=== PATIENT | male | born 1980 | race Caucasian/White ===

== ENCOUNTER 2024-04-30 04:54 | Emergency (ER) | payer BC, SELFPAY ==
[2024-04-30 04:55] VITALS: BP 143/82; PULSE 85; RESP 20; TEMP 36.6; O2SAT 98; BMI 35.2
--- NOTE | 2024-04-30 05:06 | EKG12_ITS ---
Test Reason : CP Blood Pressure : / mmHG Vent. Rate : 074 BPM Atrial Rate : 074 BPM P-R Int : 166 ms QRS Dur : 098 ms QT Int : 378 ms P-R-T Axes : 023 021 013 degrees QTc Int : 419 ms Normal sinus rhythm Normal ECG Confirmed by EMMA DRUMMOND MD ([id number]), supervising editor news reel PEGGY ALMONTE ([id number]) on 05/02/2024 9:42:35 AM Referred By: RU Confirmed By:EMMA DRUMMOND MD
--- NOTE | 2024-04-30 05:06 | RAD_ITS ---
EXAM: XR CHEST, 1 VIEW CLINICAL INDICATION: chest pain TECHNIQUE: Frontal view of the chest. COMPARISON: No relevant prior studies available. FINDINGS: LUNGS AND PLEURAL SPACES: Low lung volumes limit the exam. No consolidations. No pneumothorax. No effusion. HEART: Unremarkable. Cardiac silhouette not enlarged. MEDIASTINUM: Central airways and mediastinal contour are unremarkable. BONES/JOINTS: Unremarkable. No acute fracture. SOFT TISSUES: Unremarkable. RAD/Chest 1 View (Portable) IMPRESSION: Low lung volumes limit the exam. No acute cardiopulmonary abnormality. Electronically Signed: Randy Badillo MD at 6:28 EDT ,
--- NOTE | 2024-04-30 05:06 | EDS_ITS ---
HPI History of Present Illness Chief Complaint: Chest Pain Detail of Chief Complaint: Chest pain Informant: patient and spouse/S.O. Narrative Narrative: Patient presents to the emergency department with complaint of chest pain that started around 4:15 AM. Patient was sleeping when he woke up with discomfort in his chest. He describes a tightness or pressure in the center of his chest. No radiation of the pain. At first it felt worse with lying flat. It is not pleuritic. He denies nausea or vomiting. He denies diaphoresis or lightheadedness. He has not had discomfort like this before. He thought maybe he pulled a muscle because his daughter stepped on his back last night. Patient also had some heartburn last night. He is a diabetic type II and history of cholesterol. No family history of heart disease. [facility] Medical History (Updated 04/30/24 @ 07:[address] Denilson Gutirérez DO) Gout High cholesterol Diabetes Home Medications ?Medication ?Instructions ?Recorded ?Last Taken ?Type metformin 500 mg tablet,extended mg PO 04/30/24 Unknown History release 24 hr rosuvastatin 5 mg tablet 5 mg PO QHS 04/30/24 Unknown History Allergy/AdvReac Type Severity Reaction Status Date / Time No Known Allergies Allergy Unverified 11/30/21 08:17 Social History Smoking Status: Never smoker ROS ROS ED Review of Systems ROS Unobtainable: other Constitutional Constitutional ED: Reports lethargy; Denies chills, fever(s), sweats or weight loss Eyes Eyes: Denies blurry vision, change in vision or diplopia ENT ENT ED: Denies rhinorrhea or sore throat Cardiovascular Cardiovascular: Reports chest pain; Denies orthopnea or racing heartbeat Respiratory/Chest Respiratory/Chest: Denies cough, dyspnea, dyspnea on exertion, orthopnea or sputum Gastrointestinal Gastrointestinal: Denies abdominal pain, diarrhea, nausea or vomiting Genitourinary Genitourinary ED: Denies dysuria, hematuria or urinary frequency Musculoskeletal Musculoskeletal: Denies arthralgias, back pain, myalgias or neck pain Integumentary Denies abscess, Abrasions or rash Neurologic Neurologic: Denies headache(s) or weakness Psychiatric Psychiatric: Denies anxiety, depression or suicidal thoughts Endocrine Endocrinology: Denies polydipsia, polyphagia or polyuria Hematologic/Lymphatic Hematologic/Lymphatic: Denies easy bleeding, easy bruising or lymphadenopathy Allergic/Immunologic Allergic/Immunologic ED: Denies mouth swelling, tongue swelling or urticaria EXAM Physical Exam Const Vital Signs: 04/30/24 04:55 04/30/24 05:01 04/30/24 05:10 Temperature 98 F Temperature Source Oral Pulse Rate 85 Respiratory Rate 20 H Respiratory Effort Normal Blood Pressure 143/82 H Blood Pressure Mean 102 Pulse Ox 98 99 Oxygen Delivery Method Room Air Room Air 04/30/24 06:55 Temperature Temperature Source Pulse Rate 78 Respiratory Rate 16 Respiratory Effort Blood Pressure 124/84 H Blood Pressure Mean 97 Pulse Ox 98 Oxygen Delivery Method Positive well nourished and well developed General Appearance ED: well developed and NAD HEENT Reports TM's clear and moist mucous membranes normocephalic and atraumatic; Negative for trauma or tenderness Tympanic Membrane ED: Yes TM's clear Eyes PERRL and EOMs intact bilaterally General Eye ED: Negative for pale conjunctiva or scleral icterus Neck no lymphadenopathy, supple and no JVD General: Negative for tenderness Chest Wall inspection of chest normal and palpation of chest normal Chest: Negative for tenderness Resp normal respiratory effort and clear to auscultation bilaterally Effort and Inspection: Negative for respiratory distress or pain with movement Auscultation: Negative for rhonchi, wheezes or diminished lung sounds Cardio regular rate, regular rhythm, S1 normal heart sound, S2 normal heart sound and no murmurs Peripheral Pulses: pulses 2+ throughout GI normal to inspection, nondistended, normoactive bowel sounds, soft to palpation, non-tender, non-distended and no masses Back/Spine no CVA tenderness and no thoracic nor lumbar tenderness Extremity normal to inspection General Extremety ED: Negative for edema General Extremity: Negative for edema Neuro oriented x3, CN's II-XII intact bilaterally, no sensory deficits noted and gait normal Sensorium / Orientation: awake, alert, oriented to person, oriented to place and oriented to time Motor Exam: strength 5/5 throughout and strength abnormal Psych mental status grossly normal Skin no rashes or lesions noted and no wounds Heart Score History: Slightly/Non-Suspicious ECG: Normal Age: </= 45 years Risk Factors: 1 or 2 Risk Factors Troponin: </= Normal Limit Score: 1 MDM MDM MDM Narrative Medical decision making narrative: Patient presents with nonspecific chest pain that woke him up from sleep. He has no heart history. Does have risk factors for coronary artery disease including diabetes and cholesterol. EKG obtained on arrival showed a sinus rhythm with no acute ST segment changes. CBC with differential is normal. Chemistries unremarkable. D-dimer was normal at 0.49 and troponin was less than 3. Chest x-ray unremarkable. Will obtain a delta troponin at 2 hours. Care of patient turned over to morning physician awaiting delta troponin. Clinically he looks well and I feel he is low risk for acute coronary syndrome. If his delta troponin is normal I feel he can be safely discharged to home. Lab Data Attestation: I reviewed the patient's lab results. Labs: Laboratory Results - last 24 hr 04/30/24 05:00 WBC 7.3 RBC 5.59 Hgb 15.9 Hct 46.5 MCV 83.2 MCH 28.4 MCHC 34.2 RDW Std Deviation 37.1 RDW Coeff of Camille 12.2 Plt Count 234 MPV 10.4 Immature Gran % (Auto) 0.800 Neut % (Auto) 38.4 L Lymph % (Auto) 48.6 H Amador % (Auto) 7.5 Eos % (Auto) 3.7 Baso % (Auto) 1.0 Absolute Neuts (auto) 2.8 Absolute Lymphs (auto) 3.57 Nucleated RBC % 0 D-Dimer Quant (PE/DVT) 0.49 Sodium 137 Potassium 3.9 Chloride 104 Carbon Dioxide 29.0 Anion Gap 4 L BUN 13 Creatinine 0.98 Estim Creat Clear Calc 120.22 Est GFR (MDRD) Af Amer 106 Est GFR (MDRD) Non-Af 88 BUN/Creatinine Ratio 13.2 Glucose 171 H Calcium 9.5 Troponin I High Sens < 3 L Radiography Diagnostic Testing: Clinical Impression(s) from Imaging Studies Chest X-Ray 04/30/24 05:06 IMPRESSION: Low lung volumes limit the exam. No acute cardiopulmonary abnormality. Electronically Signed: Randy Badillo MD at 6:28 EDT , 1 view chest x-ray obtained interpreted by myself as no evidence of infiltrate or pneumothorax or acute disease process. EKG Initial EKG: Attestation: I personally reviewed and interpreted this EKG as follows: Comments: Sinus rhythm with ventricular rate of 74 bpm with no acute ST segment changes Discharge Plan Triage Chief Complaint: Chest Pain ED Provider: Denilson Gutiérrez Dx/Rx/DC Orders Clinical Impression: Chest pain Instructions: ED Chest Pain, Uncertain Cause Prescriptions: No Action metformin 500 mg tablet extended release 24 hr PO rosuvastatin 5 mg tablet 5 mg PO QHS Primary Care Provider: Dalton De La O Referrals: Dalton De La O MD [Primary Care Provider] - 3-5 Days Print Language: Latvian Disposition Disposition: Home, Self Care
[2024-04-30 05:10] VITALS: O2SAT 99
[2024-04-30] MEDS: Aspirin 81 MG TAB.CHEW 324 MG PO (05:11)
[2024-04-30 05:25] LABS: Absolute Lymphocyte Count 3.57 X10^3/uL (0.83-4.51); Absolute Neutrophil Count 2.8 X10^3/uL (2.0-7.7); Basophil# 0.07 X10^3/uL; Eosinophil# 0.27 X10^3/uL; Eosinophils% 3.7 % (0-5); Hematocrit 46.5 % (40-54); Hemoglobin 15.9 g/dL (13.0-16.5); Lymphocyte # 3.57 X10^3/ul (0.83-4.51); Lymphocyte % 48.6 % (19-41); Mean Corp Hgb Conc 34.2 g/dL (32-36); Mean Corpuscular Hgb 28.4 pg (27.0-32.0); Mean Corpuscular Volume 83.2 fL (80-94); Mean Platelet Vol. 10.4 fl (6.2-12.0); Monocyte# 0.55 X10^3/uL; Monocyte% 7.5 % (0-10); NRBC Flagged by Analyzer 0 % (0-5); Neutrophil # 2.82 X10^3/uL (2.7-7.7); Neutrophil % 38.4 % (47-70); Platelet Count 234 K/mm3 (150-450); RBC Distribution Width CV 12.2 % (11.6-14.6); RBC Distribution Width SD 37.1 fl (35.1-43.9); Red Blood Count 5.59 M/mm3 (4.6-6.2); White Blood Count 7.3 K/mm3 (4.4-11.0)
[2024-04-30 05:41] LABS: D-Dimer Quantitative (DVT/PE) 0.49 FEU/ug/m (0.27-0.49)
[2024-04-30 05:55] LABS: Anion Gap 4 (5-15); BUN 13 mg/dL (7-18); BUN/Creat Ratio 13.2 RATIO (10-20); Calcium,Total 9.5 mg/dL (8.5-10.1); Chloride 104 mmol/L (98-107); Creatinine, Serum 0.98 mg/dL (0.70-1.30); EST Glomerular Filtration Rate 88 mL/min (>60); Est Glom Filt Rate - Afr Amer 106 mL/min (>60); Estimated Creatinine Clearance 120.22 ml/min; Glucose 171 mg/dL (74-106); Potassium 3.9 mmol/L (3.5-5.1); Sodium Level 137 mmol/L (136-145); Troponin-I HS (w/2H Reflex) < 3 pg/mL (3.0-78.0)
[2024-04-30 06:55] VITALS: BP 124/84; PULSE 78; RESP 16; O2SAT 98
[2024-04-30 07:22] LABS: Reflex Troponin-HS? (from REC) Y
[2024-04-30 07:51] LABS: Troponin-I HS < 3 pg/mL (3.0-78.0)
[2024-04-30 07:57] VITALS: BP 125/88; PULSE 85; RESP 18; TEMP 36.8; O2SAT 97
== END 2024-04-30 08:01 | disposition home or self-care (01) ==
PROVIDERS: Emergency Provider Emergency Medicine; PCP Family Medicine; Visit Provider Emergency Medicine
DX: R07.89 Other chest pain (principal); E11.9 Type 2 diabetes mellitus without complications; E78.00 Pure hypercholesterolemia, unspecified; Z79.84 Long term (current) use of oral hypoglycemic drugs; Z79.899 Other long term (current) drug therapy
CPT/HCPCS: 71045; 80048; 84484; 85025; 85379; 93005; 99284; A4216